=== PATIENT | male | born 1945 | race Caucasian/White ===

== ENCOUNTER 2024-08-01 18:54 | Emergency (ER) | payer MEDICARE, OTHER, SELFPAY ==
[2024-08-01 18:56] VITALS: BP 200/84
[2024-08-01 19:37] VITALS: BMI 26.1
[2024-08-01 19:39] VITALS: BP 156/96
--- NOTE | 2024-08-01 19:40 | ED.GENMED ---
History of Present Illness
General
Chief Complaint: Cold/Flu/URI Symptoms
Source: patient
Exam Limitations: none
Time Seen by Provider: 08/01/24 19:04
Nursing documentation reviewed up to this point in time: agreed with
History of Present Illness
History of Present Illness:
pt is a 79 y/o M
with h/o HTN HLD, pacer, S/P ablation for afib on eliquis still
NIDDM
here with 2 days subjective fever/chills/cough mostly dry sometimes yellow mucus
no smoker
also feels SOB, at rest or with exertion
no chest pain, leg swelling, syncope, naysea, vomoting, diarrhea;
no h/o lung disease
did not test for covid
is vaccinated for flu and covid
no pleuritic pain
did not take his BP meds today
Past History
Past History
ED Past Medical History: Arrthythmia (Atrial fib), HTN, Hypercholesterolemia, NIDDM and Other (Sleep apnea)
ED Past Surgical History: Cardiac (pacemaker, ablation)
Social History
Tobacco: Former smoker
Alcohol: Occasional
Drug: None
Personal: Other
Living: with family
Employment: Retired
Family History
Family History: Other (non contribory)
Review of Systems
Review of Systems
Allergies reviewed?: Yes
All Other Systems: Not applicable
Phy Exam
Physical Exam
Physical Exam:
GENERAL: Alert , in no apparent distress
EYE: pupils equal and reactive
NECK: Supple
ENT: b/l TM s clear, pharynx erythematous but no tonsillar hypertrophy or exudates
CARDIAC: Regular rate and rhythm, no edema
LUNGS: Clear breath sounds bilaterally, no acute respiratory distress, no wheezes/rales/rhonchi, occ cough
ABDOMEN: Soft, without focal tenderness, no r/g, no cvat, normal bowel sounds
NEUROLOGICAL: Alert and oriented, no focal neuro deficits
SKIN: Warm and dry, skin intact.
MUSCULOSKELETAL: No edema, well perfused.
PSYCH: Normal and appropriate interaction.
Course
Orders/Labs/Results
Orders:
Orders
08/01/24 19:23
Electrocardiogram (*1) Stat
Reason for Study: Other
Other Reason for Exam: chest pain
Cardiac Monitoring- Treatment ONCE
EKG- Treatment ONCE
CR Chest - 2 Views Urgent
Comment:
Reason For Exam: cough, sob
08/01/24 19:24
Metoprolol Xl [Toprol Xl] 25 mg PO NOW STA
08/01/24 19:38
Complete Blood Count/With Diff Urgent
Comprehensive Metabolic Panel Urgent
NT-proBNP Urgent
Troponin I Urgent
Influenza A+B Rapid Molecular Urgent
MICHAEL Source: Nasal Swab
Specimen Description:
08/01/24 19:39
COVID-19 Antigen Urgent
Source: Nasal Swab
08/01/24 20:54
Albuterol Nebs [Ventolin Nebules] 2.5 mg INH R NOW STA
08/01/24 21:29
Ondansetron Injectable [Zofran] 4 mg IV NOW STA
08/01/24 21:30
Ondansetron Injectable [Zofran] 4 mg .ROUTE .[facility]
Abnormal Lab Results
08/01/24
19:38
Abs Immat Gran (auto) 0.1 H 10^3/uL
(0-0.05)
Absolute Neuts (auto) 7.1 H 10^3/uL
(1.4-6.5)
Absolute Monos (auto) 0.9 H 10^3/uL
(0.1-0.6)
Immature Gran % 0.6 H %
(0-0.5)
Lymphocytes % 14.1 L %
(20.5-51.1)
Chloride 108 H mmol/L
(98-107)
Carbon Dioxide 21 L mmol/L
(22-30)
Glucose 136 H mg/dl
(70-99)
Total Bilirubin 1.6 H mg/dl
(0.2-1.3)
08/01/24 19:38
08/01/24 19:38
Vital Signs
Initial and Last Documented VS:
Initial Vital Signs
Temp Pulse Resp BP Pulse Ox
98.0 F 82 18 200/84 99
08/01/24 18:56 08/01/24 18:56 08/01/24 18:56 08/01/24 18:56 08/01/24 18:56
Last Documented Vital Signs
Temp Pulse Resp BP Pulse Ox
98.0 F 96 18 141/72 94
08/01/24 18:56 08/01/24 23:45 08/01/24 18:56 08/01/24 23:00 08/01/24 23:45
MDM/Problems Addressed
Differential Diagnosis Includes:
uri, covid, flu, pneumonia, bronchitis, COPD
MDM/Problems Addressed:
79 y/o M
former smoker
htn, hld, dm, pacer
here with uri sxs x 2 days
subjective feve/rchills/cough, productive
no sob/cp
took OTC dayquil today
no pleuritic pain
sat normal, hypertenive
no resp distress
mild wheezing end exp b/l anteriorly with occ cough
cxr indep reviewed, no pna
covid/flu neg
wbc normal
bnp, trop, normal
ekg nonischemic
given albuterol neb and wheezing is a little less but still present; cough is improved
but i d suspect this is viral
plan was for albuterol mdi, mucinex and then hold zithromax to start if worse/not improved
but then pt had nausea and dry heaving
hew as given zofran and observed
then nausea improved; po challenge given and toelrated but then pt developed lower abd pain
he told the RN he wanted to go home but told me he had new abd isabelle
he was mildly tender R lower abdomen, still has appendix
i do not suspect he truly has appendicitis, could be viral/mesesnteric adenitis but with his age would CT
he declined, he wants to go home
is aware to reutrn if worse
*Critical Care Note
Total Time (30-74mins, 75-104mins- exclusive of procedures): Not Applicable
ED Attending Note
-
Portions of this chart may have been created with voice recognition software.� Occasional wrong word or��sound alike� substitutions may have occurred due to the inherent limitations of voice recognition software.
Discharge Plan
Departure
Patient Disposition: Home (Routine Discharge)
Date of Disposition: 08/01/24
Time of Disposition: 23:32
Patient with high blood pressure during this ER visit?: Yes
Condition: Fair
Covid-19: Not Applicable
Discharge Problem:
Upper respiratory infection
Instructions: Viral Upper Respiratory Infection, Adult (DC)
Prescriptions:
New
albuterol sulfate 90 mcg/actuation HFA aerosol inhaler
2 puff inhalation Q6H PRN (Reason: shortness of breath or wheezing) Qty: 6.7 0RF
azithromycin [Zithromax] 250 mg tablet
250 mg PO DAILY Qty: 6 0RF
Rx Instructions:
take 2 tabs po day 1, then 1 tab po daily x 4 days
No Action
acetaminophen-codeine 1 TABLET tablet
1 tab PO Q4HPRN PRN (Reason: Pain) Qty: 15 0RF
dicyclomine 20 MG tablet
20 mg PO QIDPRN PRN (Reason: abdominal pain) Qty: 14 0RF
prednisone 10 MG tablet
10 mg PO .TAPER Qty: 30 0RF
Rx Instructions:
Take 40mg daily x3days, 30mg daily x3days,
20mg daily x3days, 10mg daily x3days.
hydroxyzine HCl 25 MG tablet
25 mg PO QIDPRN PRN (Reason: hives/itching) Qty: 15 0RF
Referrals:
Francesca Mix MD [Family Provider] -
Activity Restrictions/Additional Instructions:
YOU PROBALBY HAVE A VIRAL UPPER RESPIRATORY INFECTION
YOU TESTED NEGATIVE FOR FLU AND COVID
YOU HAD NO SIGN OF PNEUMONIA
TRY ROBITUSSIN COUGH SYRUP, TYLENOL FOR PAIN AND FEVER
IF YOU ARE STILL HAVING PRODUCTIVE COUGH, YOU CAN TRY ZITHROMAX INSTRUCTED. BUT GIVE IT A DAY OR TWO TO SEE IF IT CLEARS UP
RETURNF OR: SHORTNESS OF BREATH, WORSE COUGH, CHEST PAIN, HIGH FEVER NOT IMPROVING WITH TYLENOL OR ANY CONCERNS
SEE YOUR DOCTOR THIS WEEK
YOU CAN USE THE INHALER 2 PUFFS EVERY 6 HOURS NEEDED FOR COUGH
Interventions
Interventions:
*Risk Screen - Suicide Last Done: 08/01/24 20:54
*General Assessment Last Done: 08/01/24 18:56
*Neglect/Abuse Screening Last Done: 08/01/24 20:54
ED- Fall Risk Assessment Last Done: 08/01/24 20:54
*ED COVID-19 Vaccine History Last Done: 08/02/24 00:00
*Nursing Disposition Last Done: 08/02/24 00:00
ED- Pulmonary Assessment Last Done: 08/01/24 20:54
Discharge Date and Time
Discharge Date/Time: 08/02/24 00:01
Print Language: QATARI
[2024-08-01] MEDS: TOPROL XL 25 MG PO (19:45)
[2024-08-01 19:58] LABS: % Basophils 0.3 % (0-2); % Eosinophils 2.6 % (0-6); % Immature Granulocytes 0.6 % (0-0.5); % Lymphocytes 14.1 % (20.5-51.1); % Monocytes 9.3 % (1.7-9.3); % Neutrophils 73.1 % (42.2-75.2); Absolute Eosinophils 0.3 10^3/uL (0-0.7); Absolute Immature Granulocytes 0.1 10^3/uL (0-0.05); Absolute Lymphocytes 1.4 10^3/uL (1.2-3.4); Absolute Monocytes 0.9 10^3/uL (0.1-0.6); Absolute Neutrophils 7.1 10^3/uL (1.4-6.5); Hematocrit 43.8 % (39.0-52.0); Hemoglobin 15.5 g/dL (13.0-18.0); Mean Corp Hgb Conc. 35.4 g/dL (33.0-37.0); Mean Corpuscular Hgb 29.2 pg (27.0-31.0); Mean Corpuscular Volume 82.5 fL (80.0-94.0); Mean Platelet Volume 8.4 fL (7.4-10.4); Nucleated Red Blood Cells % 0 % (-); Platelet Count 304 10^3/uL (130-400); Red Blood Cell Count 5.31 10^6/uL (4.70-6.10); Red Cell Dist. Width 14.4 % (11.5-14.5); White Blood Cell Count 9.7 10^3/uL (4.8-10.8)
[2024-08-01 20:00] VITALS: BP 126/81
[2024-08-01 20:22] LABS: ALT (SGPT) 18 U/L (0-50); AST (SGOT) 26 U/L (17-59); Albumin 4.1 g/dl (3.5-5.0); Alkaline Phosphatase 119 U/L (38-126); Blood Urea Nitrogen 12 mg/dl (9-20); Calcium 9.3 mg/dl (8.4-10.2); Carbon Dioxide 21 mmol/L (22-30); Chloride 108 mmol/L (98-107); Estimated Creatinine Clearance 51 ml/min; Glucose 136 mg/dl (70-99); Potassium 4.4 mmol/L (3.5-5.1); Sodium 142 mmol/L (135-145); Total Bilirubin 1.6 mg/dl (0.2-1.3); Total Protein 6.6 g/dl (6.3-8.2); eGFR > 60.00
[2024-08-01 20:32] LABS: COVID-19 Antigen Negative (Negative)
[2024-08-01 20:35] LABS: NT-proBNP 282 pg/ml; Troponin I < 0.012 ng/ml
[2024-08-01] MEDS: VENTOLIN NEBULES 2.5 MG INH (21:08)
[2024-08-01 21:10] VITALS: BP 141/72
[2024-08-01] MEDS: ZOFRAN 4 MG IV (21:30)
--- NOTE | 2024-08-01 21:36 | EDRN ---
AZUCENA Motta went in to check on patient, he started vomiting up some bile, medicated for this, will re-assess
[2024-08-01 22:00] VITALS: BP 143/81
[2024-08-01 23:00] VITALS: BP 141/72
--- NOTE | 2024-08-01 23:30 | EDRN ---
AZUCENA Izaguirre back in to speak with patient and family, patient is wanting to go home, patient will be discharged home with meds and follow up
== END 2024-08-02 00:01 | disposition home or self-care (01) ==
LOC: EMR 18:54
PROVIDERS: Physician Assistant; EMERGENCY PHYSICIAN Student in an Organized Health Care Education/Training Program; FAMILY PHYSICIAN Internal Medicine
DX: J06.9 Acute upper respiratory infection, unspecified (principal); R11.2 Nausea with vomiting, unspecified; R10.31 Right lower quadrant pain; Z11.52 Encounter for screening for COVID-19; E78.00 Pure hypercholesterolemia, unspecified; G47.30 Sleep apnea, unspecified; E11.9 Type 2 diabetes mellitus without complications; I10 Essential (primary) hypertension; I48.91 Unspecified atrial fibrillation; Z95.0 Presence of cardiac pacemaker; Z79.01 Long term (current) use of anticoagulants; Z79.84 Long term (current) use of oral hypoglycemic drugs; Z87.891 Personal history of nicotine dependence
CPT/HCPCS: 99284; 96374; 94640; 71046; 80053; 83880; 84484; 85025; 87502; 87811; 93005

== ENCOUNTER → 2025-06-06 11:51 | Outpatient (REF) | payer OTHER, SELFPAY | LOC: RAD 11:51 | PROVIDERS: ATTENDING PHYSICIAN Internal Medicine Cardiovascular Disease | DX: E78.00 Pure hypercholesterolemia, unspecified (principal); E78.5 Hyperlipidemia, unspecified; Z95.0 Presence of cardiac pacemaker | CPT/HCPCS: 93970 ==

== ENCOUNTER 2025-08-12 08:51 | Emergency (ER) | payer OTHER, SELFPAY ==
[2025-08-12 08:55] VITALS: BP 175/92
--- NOTE | 2025-08-12 09:13 | ED.GENMED ---
History of Present Illness
<Peyman Oropeza PA-C - Last Filed: 08/12/25 15:29>
General
Chief Complaint: Flank Pain
Source: patient
Time Seen by Provider: 08/12/25 09:05
History of Present Illness
History of Present Illness:
80-year-old male with past medical history of hypertension, hyperlipidemia, yrw-yaxubdq-xchorrfld diabetes, status post pacemaker placement presenting to the emergency department for evaluation of right-sided flank pain described to be a waxing and
waning sensation, somewhat worse with movement as well as deep inspiration, no alleviating factors noting that he took Tylenol and Motrin with no relief, yesterday started to experience mild shortness of breath, symptoms persistent today which is
what prompted him to come to the emergency department. He denies any history of similar. Otherwise denying chest pain, palpitations, exertional dyspnea orthopnea, lower extremity edema, cough or hemoptysis, fevers/chills or rigors. Patient is an
ex-smoker, notes that he has not smoked in over 30 years. Denies any recent travel, no known sick contacts or recent antibiotics. Denies any known family history of DVT/PE. He is also denying any personal history of pneumonia or kidney stones.
Past History
<Peyman Oropeza PA-C - Last Filed: 08/12/25 15:29>
Past History
ED Past Medical History: Arrthythmia (Atrial fib), HTN, Hypercholesterolemia, NIDDM and Other (Sleep apnea)
ED Past Surgical History: Cardiac (pacemaker, ablation)
Social History
Tobacco: Former smoker
Alcohol: Occasional
Drug: None
Personal: Single
Living: with family
Employment: Retired
Family History
Family History: Other (non contribory)
Review of Systems
<Peyman Oropeza PA-C - Last Filed: 08/12/25 15:29>
Review of Systems
All Other Systems: ROS reviewed and negative except as documented in HPI and ROS
Phy Exam
<Peyman Oropeza PA-C - Last Filed: 08/12/25 15:29>
Physical Exam
Physical Exam:
GENERAL: Alert , in no apparent distress at rest but does grimace with attempted movements
EYE: clear conjunctiva b/l
HEAD: NCAT
ENT: o/p clr, mmm.
CARDIAC: Regular rate and rhythm .
LUNGS: Clear breath sounds bilaterally, no acute respiratory distress, no wheezes/rales/rhonchi
ABDOMEN: Soft, without focal tenderness, no r/g, no cvat
NEUROLOGICAL: Alert and oriented
SKIN: Warm and dry, skin intact. No rash
MUSCULOSKELETAL: No edema, well perfused.
PSYCH: Normal and appropriate interaction.
Scores
<Peyman Oropeza PA-C - Last Filed: 08/12/25 15:29>
Heart Failure Risk
Heart Failure Risk Score: Not Applicable
Heart Score for Chest Pain Patients
STEMI patient?: Not applicable
Withdrawal Assessment of Alcohol
Withdrawal Assessment Completed?: Not applicable
Course
<Peyman Oropeza PA-C - Last Filed: 08/12/25 15:29>
Orders/Labs/Results
Orders:
Orders
08/12/25 09:13
Electrocardiogram (*1) Urgent
Reason for Study: Shortness of Breath
EKG- Treatment ONCE
08/12/25 09:21
Complete Blood Count/With Diff Urgent
Comprehensive Metabolic Panel Urgent
D-Dimer Urgent
NT-proBNP Urgent
Troponin I Urgent
08/12/25 09:29
Urinalysis Reflex To Culture Urgent
Date Specimen was Collected: 08/12/25
Time Specimen was Collected: 09:21
Urine Microscopic Reflex Cult Urgent
08/12/25 10:20
CT Pe/abd/pel W Urgent
Reason For Exam: right flank pain, SOB, order combined
Abnormal Lab Results
08/12/25 08/12/25
09:21 09:29
RDW 15.0 H %
(11.5-14.5)
Absolute Neuts (auto) 6.8 H 10^3/uL
(1.4-6.5)
Absolute Monos (auto) 0.8 H 10^3/uL
(0.1-0.6)
Lymphocytes % 16.5 L %
(20.5-51.1)
D-Dimer 0.99 H ug/mlFEU
(0.00-0.50)
Chloride 108 H mmol/L
(98-107)
Glucose 102 H mg/dl
(70-99)
Total Bilirubin 2.8 H mg/dl
(0.2-1.3)
Alkaline Phosphatase 128 H U/L
(38-126)
Urine Ketones 2+ A
(Negative)
Urine Glucose 3+ A
(Negative)
Urine Albumin (Reflex) 1+ A
(Neg - Trace)
08/12/25 09:21
08/12/25 09:21
Vital Signs
Initial and Last Documented VS:
Initial Vital Signs
Temp Pulse Resp BP Pulse Ox
98.0 F 67 18 175/92 98
08/12/25 08:55 08/12/25 08:55 08/12/25 08:55 08/12/25 08:55 08/12/25 08:55
Last Documented Vital Signs
Temp Pulse Resp BP Pulse Ox
98.0 F 72 18 160/85 97
08/12/25 08:55 08/12/25 11:47 08/12/25 11:47 08/12/25 11:47 08/12/25 11:47
<Dominick Waldrop, DO - Last Filed: 10/10/25 10:21>
Orders/Labs/Results
Orders:
Orders
08/12/25 09:13
Electrocardiogram (*1) Urgent
Reason for Study: Shortness of Breath
EKG- Treatment ONCE
08/12/25 09:21
Complete Blood Count/With Diff Urgent
Comprehensive Metabolic Panel Urgent
D-Dimer Urgent
NT-proBNP Urgent
Troponin I Urgent
08/12/25 09:29
Urinalysis Reflex To Culture Urgent
Date Specimen was Collected: 08/12/25
Time Specimen was Collected: 09:21
Urine Microscopic Reflex Cult Urgent
08/12/25 10:20
CT Pe/abd/pel W Urgent
Reason For Exam: right flank pain, SOB, order combined
Abnormal Lab Results
08/12/25 08/12/25
09:21 09:29
RDW 15.0 H %
(11.5-14.5)
Absolute Neuts (auto) 6.8 H 10^3/uL
(1.4-6.5)
Absolute Monos (auto) 0.8 H 10^3/uL
(0.1-0.6)
Lymphocytes % 16.5 L %
(20.5-51.1)
D-Dimer 0.99 H ug/mlFEU
(0.00-0.50)
Chloride 108 H mmol/L
(98-107)
Glucose 102 H mg/dl
(70-99)
Total Bilirubin 2.8 H mg/dl
(0.2-1.3)
Alkaline Phosphatase 128 H U/L
(38-126)
Urine Ketones 2+ A
(Negative)
Urine Glucose 3+ A
(Negative)
Urine Albumin (Reflex) 1+ A
(Neg - Trace)
08/12/25 09:21
08/12/25 09:21
Vital Signs
Initial and Last Documented VS:
Initial Vital Signs
Temp Pulse Resp BP Pulse Ox
98.0 F 67 18 175/92 98
08/12/25 08:55 08/12/25 08:55 08/12/25 08:55 08/12/25 08:55 08/12/25 08:55
Last Documented Vital Signs
Temp Pulse Resp BP Pulse Ox
98.0 F 72 18 160/85 97
08/12/25 08:55 08/12/25 11:47 08/12/25 11:47 08/12/25 11:47 08/12/25 11:47
<Peyman Oropeza PA-C - Last Filed: 08/12/25 15:29>
MDM/Problems Addressed
Differential Diagnosis Includes:
Pulmonary embolism
Pneumonia
Musculoskeletal back pain
Renal/ureteral colic
Pyelonephritis/urinary tract infection
Shingles
Atypical ACS presentation
MDM/Problems Addressed:
80-year-old male presenting to the ER for evaluation of nontraumatic right-sided flank pain. Symptoms have been ongoing for a few days, associated yesterday with shortness of breath. Patient arrives mildly hypertensive but otherwise
hemodynamically stable and in no acute distress. Symptoms do seem to worsen with attempted range of motion which would lend itself to a muscular etiology however patient reporting shortness of breath, given his age and medical conditions will
obtain labs including cardiac markers and a D-dimer. Will order imaging pending lab results. Patient declining anything for pain.
<Peyman Oropeza PA-C - Last Filed: 08/12/25 15:29>
*Radiology
Radiology exam reviewed: radiology read reviewed
*Pulse Oximetry
SaO2: 98
Oxygen Mode of Delivery: Room air
Patient hypoxic: no
*Critical Care Note
Total Time (30-74mins, 75-104mins- exclusive of procedures): Not Applicable
Data Reviewed
Review of Other/Old Records Reveals: Labs and Records
<Peyman Oropeza PA-C - Last Filed: 08/12/25 15:29>
Patient Management
Escalation/DeEscalation of care consider admission/obs:
Patient CT scan is negative for pulmonary embolism. There are small bilateral pleural effusions with the right side being greater than the left. I do suspect this is the likely cause of patient's symptoms. His BNP is also mildly elevated. Will
treat with a 1 week course of Lasix. Patient potassium within normal limits. Encouraged him to eat potassium rich foods. I also encouraged the patient to follow-up with his primary care provider as well as his stockroom associate. Patient follows with
stockroom associate at the [facility]. I did encourage contact them for close follow-up. Patient is aware of return precautions. Otherwise stable for discharge home.
ED Attending Note
<Peyman Oropeza PA-C - Last Filed: 08/12/25 15:29>
-
Portions of this chart may have been created with voice recognition software.� Occasional wrong word or��sound alike� substitutions may have occurred due to the inherent limitations of voice recognition software.
<Dominick Waldrop DO - Last Filed: 08/12/25 10:21>
ED Attending Note
Patient seen and examined by attending physician: Yes
I performed the substantive portion of visit, reviewed & personally made and approve the management plan that is documented in note by myself or DEAN.: Yes
ED Attending Note:
I evaluated the patient at bedside. The patient appeared to have increased discomfort when he tried to flex forward at the thoracolumbar spine. There are some discomfort with palpation near the right 12th rib. D-dimer slightly elevated. Troponin
negative. Will obtain CT imaging for further evaluation.
Discharge Plan
Departure
Patient Disposition: Home (Routine Discharge)
Date of Disposition: 08/12/25
Time of Disposition: 12:16
Patient with high blood pressure during this ER visit?: Yes
Discharge Problem:
Pleural effusion
Instructions: Pleural effusion (DC)
Prescriptions:
New
furosemide [Lasix] 40 mg tablet
40 mg PO DAILY 7 Days Qty: 7 0RF
No Action
acetaminophen-codeine 1 TABLET tablet
1 tab PO Q4HPRN PRN (Reason: Pain) Qty: 15 0RF
dicyclomine 20 MG tablet
20 mg PO QIDPRN PRN (Reason: abdominal pain) Qty: 14 0RF
prednisone 10 MG tablet
10 mg PO .TAPER Qty: 30 0RF
Rx Instructions:
Take 40mg daily x3days, 30mg daily x3days,
20mg daily x3days, 10mg daily x3days.
hydroxyzine HCl 25 MG tablet
25 mg PO QIDPRN PRN (Reason: hives/itching) Qty: 15 0RF
albuterol sulfate 90 mcg/actuation HFA aerosol inhaler
2 puff inhalation Q6H PRN (Reason: shortness of breath or wheezing) Qty: 6.7 0RF
azithromycin [Zithromax] 250 mg tablet
250 mg PO DAILY Qty: 6 0RF
Rx Instructions:
take 2 tabs po day 1, then 1 tab po daily x 4 days
Referrals:
UNKNOWN - PT DOES,NOT KNOW [Family Provider]
Interventions
Interventions:
*Risk Screen - Suicide Last Done: 08/12/25 08:55
*General Assessment Last Done: 08/12/25 08:55
*Neglect/Abuse Screening Last Done: 08/12/25 10:46
*Nursing Disposition Last Done: 08/12/25 12:43
LD-Btcqvm-Baizwepxmb Assessment Last Done: 08/12/25 10:45
ED-Male Genitourinary Assessment Last Done: 08/12/25 10:45
Discharge Date and Time
Discharge Date/Time: 08/12/25 12:44
Print Language: SPANISH
[2025-08-12 09:37] LABS: Hematocrit 43.1 % (39.0-52.0); Hemoglobin 15.0 g/dL (13.0-18.0); Mean Corp Hgb Conc. 34.8 g/dL (33.0-37.0); Mean Corpuscular Volume 83.4 fL (80.0-94.0); Nucleated Red Blood Cells % 0 % (-); Platelet Count 270 10^3/uL (130-400); Red Cell Dist. Width 15.0 % (11.5-14.5)
[2025-08-12 09:40] LABS: Urine Character Clear (Clear)
[2025-08-12 09:48] LABS: Urine Red Blood Cell 0-2 /HPF (0-2); Urine Squamous Cell 0-2 /LPF (Few); Urine White Cell 0-2 /HPF (0-5)
[2025-08-12 09:49] LABS: D-Dimer 0.99 ug/mlFEU (0.00-0.50)
[2025-08-12 10:01] LABS: ALT (SGPT) 22 U/L (0-50); AST (SGOT) 21 U/L (17-59); Albumin 3.9 g/dl (3.5-5.0); Alkaline Phosphatase 128 U/L (38-126); Blood Urea Nitrogen 13 mg/dl (9-20); Calcium 9.1 mg/dl (8.4-10.2); Carbon Dioxide 24 mmol/L (22-30); Chloride 108 mmol/L (98-107); Glucose 102 mg/dl (70-99); Potassium 4.3 mmol/L (3.5-5.1); Sodium 139 mmol/L (135-145); Total Protein 6.6 g/dl (6.3-8.2); eGFR > 60.00
[2025-08-12 10:13] LABS: Troponin I < 0.012 ng/ml
[2025-08-12 11:47] VITALS: BP 160/85
== END 2025-08-12 12:44 | disposition home or self-care (01) ==
LOC: EMR 08:51
PROVIDERS: Physician Assistant Medical; EMERGENCY PHYSICIAN Emergency Medicine
DX: J90 Pleural effusion, not elsewhere classified (principal); I48.91 Unspecified atrial fibrillation; I10 Essential (primary) hypertension; E78.00 Pure hypercholesterolemia, unspecified; E11.9 Type 2 diabetes mellitus without complications; G47.30 Sleep apnea, unspecified; Z45.018 Encounter for adjustment and management of other part of cardiac pacemaker; Z87.891 Personal history of nicotine dependence
CPT/HCPCS: 99284; 71275; 74177; 80053; 81003; 81015; 83880; 84484; 85025; 85379; 93005; Q9967